=== PATIENT | male | born 1985 | race Asian ===

== ENCOUNTER 2018-11-02 13:43 | Emergency (ER) | payer OTHER, SELFPAY ==
[2018-11-02 14:05] VITALS: BP 112/63; PULSE 77; RESP 18; TEMP 36.9; O2SAT 99; BMI 22.6
--- NOTE | 2018-11-02 14:10 | DI.RAD.S_ITS ---
PROCEDURE: XR FOOT LT MIN 3V INDICATIONS: Machine rolled over distal foot, unable to wt bear. TECHNIQUE: 3 views of the foot were acquired. COMPARISON: None. FINDINGS: Bones: There is a non-displaced fracture at the base of the fourth proximal phalanx. No suspicious bony lesions. Soft tissues: No tibiotalar joint effusion. Achilles tendon appears normal. Dorsal soft tissue swelling. IMPRESSION: Nondisplaced fracture at the base of the fourth proximal phalanx. Dictated by: Brianna Heath M.D. on 11/02/2018 at 14:36 Approved by: Brianna Heath M.D. on 11/02/2018 at 14:37
[2018-11-02] MEDS: TET,DIPH,PERTUSS(ACELL),VAC/PF 0.5 ML SYRINGE IM (16:17)
[2018-11-02] MEDS: cephALEXin 250 MG CAPSULE 500 MG PO (16:18)
[2018-11-02 16:32] VITALS: BP 122/71; PULSE 82; RESP 15; O2SAT 100
[2018-11-02] MEDS: HYDROCODONE/ACET 5/325 PREPACK 1 BOTTLE MISC (16:38)
--- NOTE | 2018-11-02 19:22 | ED_ITS ---
HPI - Extremity Injury (Lower) General Chief Complaint: Extremity Injury, Lower Stated Complaint: CRUSH INJURY TO LEFT FOOT Time Seen by Provider: 11/02/18 14:53 Source: patient and family Mode of arrival: ambulatory Limitations: no limitations History of Present Illness HPI Narrative: 33-year-old, fully immunized nonsmoker presents with a work related left foot injury when heavy work machine rolled over his left foot. He now has painful ambulation and some blood coming from the his pinky toe. His tetanus will need to be updated today. He denies other injury and is otherwise well and free of complaint MD complaint: foot injury Onset (ago): minute(s) Injury: Left: foot Place: work Severity: moderate Relieving factors: nothing Exacerbating factors: weight bearing and movement Related Data Previous Rx's Medication Instructions Recorded cephalexin [Keflex] 500 mg PO QID 7 Days #28 cap 11/02/18 Allergies Allergy/AdvReac Type Severity Reaction Status Date / Time No Known Drug Allergies Allergy Verified 11/02/18 14:09 Review of Systems Review of Systems All systems reviewed & are unremarkable except as noted in HPI and below Constitutional Denies chills, Denies fever(s), Denies lethargy and Denies weakness Eyes Denies change in vision, Denies eye discharge, Denies irritation and Denies loss of vision ENT Ears, Nose, Mouth, and Throat: Denies change in voice, Denies neck pain and Denies sore throat Cardiovascular Denies chest pain, Denies irregular heart rhythm, Denies lightheadedness, Denies palpitations, Denies dyspnea, Denies dyspnea on exertion and Denies orthopnea Respiratory Denies cough, Denies dyspnea, Denies dyspnea on exertion and Denies wheezing Gastrointestinal Gastrointestinal: Denies abdominal pain, Denies change in bowel habits, Denies diarrhea, Denies nausea and Denies vomiting Genitourinary Denies hematuria, Denies flank pain, Denies urinary incontinence and Denies urinary urgency Musculoskeletal Reports joint swelling, Reports limited range of motion and Denies neck pain Integumentary/Breasts Denies pruritus, Denies erythema, Denies rash and Denies wounds Neurologic Denies confusion, Denies loss of vision and Denies weakness Psychiatric Denies anxiety, Denies confusion, Denies depression, Denies homicidal ideation and Denies suicidal ideation Endocrine Denies palpitations Hematologic/Lymphatic Denies easy bruising Allergic/Immunologic Denies wheezing PFSH Social History Smoking Status: Current every day smoker Exam Narrative Exam Narrative: GEN: AOx3 and in mild distress EYES: Pupils are equal, round, and reactive to light and accommodation. Extraoccular muscles are intact bilaterally. There is no subconjunctival hemorrhage or exudate. CHEST: Lungs are clear to auscultation bilaterally and free of wheezes, rales, or rhonchi. Heart rate is regular rhythm, there are no murmurs, clicks, rubs, or gallops. There is no chest wall tenderness. ABD: Abdomen is soft and nontender. There is no guarding or rebound. Bowel sounds are normal in all 4 quadrants. There is no mass or organomegaly. EXT: Pain and swelling on the dorsal lateral aspect of left foot with a small superficial abrasion. Primary point of tenderness is at the base of the 4th and toes. There is a laceration, 1 cm in the you webspace between the 4th and 5th toe extending towards the 5th toe, not into the base of the 4th toe where the fracture is noted on the x-ray. SKIN: Warm, pink, and dry. No erythema or rash Initial Vital Signs Initial Vital Signs: Vital Signs Temperature 98.4 F 11/02/18 14:05 Pulse Rate 77 11/02/18 14:05 Respiratory Rate 18 11/02/18 14:05 Blood Pressure 112/63 11/02/18 14:05 Pulse Oximetry 99 11/02/18 14:05 Procedures Laceration Repair Laceration 1: Site: lower extremity Side (If applicable): left (1.5) Description: irregular and clean Depth: simple, single layer Local Anesthetic: lidocaine 1% and with bicarb Amount of anesthesia used (mL): 6 Skin layer closed with: nylon Size (cm): 5-0 Number of sutures: 4 Technique: simple, interrupted Course Orders Ordered: ED Orders 11/02/18 14:10 XR foot LT min 3V Stat Discontinued Medications Hydrocodone Bitart/Acetaminophen (Vicodin Prepack) 1 bottle MISC SEEINSTR ONE Stop: 11/02/18 16:24 Last Admin: 11/02/18 16:38 Dose: 1 bottle Cephalexin HCl (Keflex) 500 mg PO NOW ONE Stop: 11/02/18 16:00 Last Admin: 12/23/18 16:18 Dose: 500 mg Diphtheria/Tetanus/Acell Pertussis (Adacel) 0.5 ml IM .ONCE ONE Stop: 11/02/18 16:17 Last Admin: 11/02/18 16:17 Dose: 0.5 ml Vital Signs - 8 hr 11/02/18 14:05 11/02/18 16:32 Temperature 98.4 F Pulse Rate 77 82 Respiratory Rate 18 15 Blood Pressure 112/63 Blood Pressure [Left Arm] 122/71 Pulse Oximetry 99 100 MDM - Extremity Injury (Lower) Imaging Data Foot Xray: Radiologist's impression: [address] [address] XRay Report Signed Patient: EDITH VALLEJO MR#: [id number] : 1985 Acct:[id number] Age/Sex: 33 / M Date of Service: 11/02/18 Loc: ED Accession Number: [id number] Procedure: XR foot LT min 3V Ordering Provider: Jag Negron D.O. PROCEDURE: XR FOOT LT MIN 3V INDICATIONS: Machine rolled over distal foot, unable to wt bear. TECHNIQUE: 3 views of the foot were acquired. COMPARISON: None. FINDINGS: Bones: There is a non-displaced fracture at the base of the fourth proximal phalanx. No suspicious bony lesions. Soft tissues: No tibiotalar joint effusion. Achilles tendon appears normal. Dorsal soft tissue swelling. IMPRESSION: Nondisplaced fracture at the base of the fourth proximal phalanx. Dictated by: Brianna Heath M.D. on 11/02/2018 at 14:36 Approved by: Brianna Heath M.D. on 11/02/2018 at 14:37 [facility] Narrative Medical decision making narrative: Patient with crush injury resulting in 1 small nondisplaced fracture and a laceration. Foot was soaked and scrubbed extensively. Tetanus is updated and antibiotics initiated. Follow-up suggested workplace is [facility] Discharge Plan Departure Patient Disposition: Home Clinical Impression: Foot fracture, left, Laceration of foot, left, Contusion of foot, left Discharge Date/Time: 11/02/18 16:39 Interventions: ED Discharge Assessment Last Done: 11/02/18 16:39 Instructions: DI for Laceration Repair, DI for Foot Fracture Activity Restrictions/Additional Instructions: Please keep the wound clean and dry to the best of your ability. Please monitor for signs of infection such as redness to the skin or increasing pain. Have the sutures removed by your doctor in about 7 days. If you are unable to get into your doctor, we would be happy to remove the sutures in that same timeframe. Prescriptions: New cephalexin [Keflex] 500 mg capsule 500 mg PO QID 7 Days Qty: 28 RF: 0
== END 2018-11-02 16:39 | disposition home or self-care (01) ==
PROVIDERS: Emergency Provider Emergency Medicine
DX: S92.902A Unspecified fracture of left foot, initial encounter for closed fracture (principal); S92.312A Displaced fracture of first metatarsal bone, left foot, initial encounter for closed fracture; W23.0XXA Caught, crushed, jammed, or pinched between moving objects, initial encounter; Y99.0 Civilian activity done for income or pay
CPT/HCPCS: 12001; 73630; 90471; 99282; 99283; 90715

== ENCOUNTER 2018-11-09 09:39 | Emergency (ER) | payer OTHER, SELFPAY ==
[2018-11-09 09:50] VITALS: BP 123/78; PULSE 67; RESP 16; TEMP 36.9; O2SAT 100; BMI 21.1
--- NOTE | 2018-11-09 09:59 | ED.WOUNDLAC ---
HPI - Wound/Laceration General Chief Complaint: Wound/Laceration Stated Complaint: STITCHES REMOVAL Time Seen by Provider: 11/09/18 09:50 Source: patient Mode of arrival: ambulatory Limitations: no limitations History of Present Illness HPI narrative: 33-year-old male here for removal of stitches to his left foot. Stitches were placed approximately 7-10 days ago secondary to a laceration. Patient states things have been going well since the stitch placement. Related Data Allergies Allergy/AdvReac Type Severity Reaction Status Date / Time No Known Drug Allergies Allergy Verified 11/09/18 09:50 Review of Systems Constitutional Denies fever(s) Integumentary/Breasts Comments: Stitches removal to left foot Neurologic Comments: No numbness or tingling left foot [facility] Medical History Healthy adult (Acute) Social History Smoking Status: Current every day smoker Exam Initial Vital Signs Initial Vital Signs: Vital Signs Temperature 98.5 F 11/09/18 09:50 Pulse Rate 67 11/09/18 09:50 Respiratory Rate 16 11/09/18 09:50 Blood Pressure 123/78 11/09/18 09:50 Pulse Oximetry 100 11/09/18 09:50 Const General: cooperative, healthy appearing, comfortable, well developed, well groomed and No acute distress Resp Effort & Inspection: normal respiratory effort Skin Other: Wound located in between the 4th and 5th toe on the left foot looks well. Stitches intact. Neuro Sensory Exam: no sensory deficits noted Extrem Other: Very minor swelling to the lateral aspect distally of the left foot Course Vital Signs - 8 hr 11/09/18 09:50 Temperature 98.5 F Pulse Rate 67 Respiratory Rate 16 Blood Pressure 123/78 Pulse Oximetry 100 MDM - Wound/Laceration MDM Narrative Medical decision making narrative: 4 stitches were removed from the left foot in between the 4th and 5th digits. The wound looks well. No dehiscence. No surrounding erythema. No signs of infection. Patient was given care instructions. He was given return precautions. He expressed understanding and agreement plan. Discharge Plan Departure Patient Disposition: Home Clinical Impression: Laceration Instructions: Skin Wound Activity Restrictions/Additional Instructions: 4 stitches were removed today. The wound looks well. Recommend that you may contact with a primary care doctor in the local area. Return to the emergency department for any new or worsening symptoms
== END 2018-11-09 10:05 | disposition home or self-care (01) ==
PROVIDERS: Emergency Provider Emergency Medicine
DX: Z48.02 Encounter for removal of sutures (principal)
CPT/HCPCS: 99281; 99283

== ENCOUNTER → 2024-04-09 08:29 | Outpatient (CLI) | payer OTHER, SELFPAY ==
[2024-04-09 08:56] LABS: Add Manual Diff / Slide Review NO; Basophils Absolute Auto 100 /uL (0-100); Basophils Percent Auto 1.1 % (0-2); Eosinophils Absolute Auto 1500 /uL (0-450); Eosinophils Percent Auto 19.1 % (2-4); Hematocrit 42.9 % (41-53); Hemoglobin 14.3 g/dL (13.5-17.5); Lymphocytes Absolute Auto 1900 /uL (1100-4500); Lymphocytes Percent Auto 23.9 % (25-40); Mean Corpuscular HGB Conc 33.4 % (30-36); Mean Corpuscular Hemoglobin 29.9 PG (26-34); Mean Corpuscular Volume 89.5 fL (80-100); Monocytes Absolute Auto 500 /uL (0-900); Monocytes Percent Auto 5.8 % (3-14); Neutrophils Absolute Auto 3900 /uL (1500-7000); Neutrophils Percent Auto 50.1 % (50-75); Platelet Count 254 X10^3/uL (150-400); Red Blood Cell Count 4.79 X10^6/uL (4.5-5.9); Red Cell Distribution Width 12.6 % (11.6-14.8); White Blood Cell Count 7.8 X10^3/uL (4.5-11.0)
[2024-04-09 09:26] LABS: Alanine Aminotransferase 28 IU/L (<50); Albumin 4.4 g/dL (3.5-5.0); Albumin Globulin Ratio 2.1 (1.0-2.8); Alkaline Phosphatase 58 U/L (38-126); Aspartate Aminotransferase 26 IU/L (17-59); BUN Creatinine Ratio 14.8 (6-22); Bilirubin Total 0.4 mg/dL (0.2-1.3); Blood Urea Nitrogen 12 mg/dL (9-20); Calcium 8.9 mg/dL (8.4-10.2); Carbon Dioxide 27 mmol/L (22-32); Chloride 109 mmol/L (98-107); Cholesterol 145 mg/dL (140-199); Estimated Glomerular Filt Rate > 60 mL/min (>60); Globulin 2.1 g/dL (1.7-4.1); Glucose 109 mg/dL (70-100); HDL Cholesterol 61 mg/dL (40-60); HEMOLYSIS < 15 (0-50); LDL Cholesterol Calculated 68 mg/dL (<100); Potassium 4.5 mmol/L (3.4-5.1); Sodium 141 mmol/L (137-145); Total Protein 6.5 g/dL (6.3-8.2); Triglycerides 82 mg/dL (35-150)
[2024-04-09 15:52] LABS: HIV 1 & 2 Ab/Ag 4th Gen Combo NEGATIVE (NEGATIVE); Hep C Virus Ab w/Reflex Quant NEGATIVE s/c (NEGATIVE)
== END ==
PROVIDERS: PCP Family Medicine; Referring Provider Family Medicine; Visit Provider Family Medicine
DX: R10.13 Epigastric pain (principal); L29.9 Pruritus, unspecified; F41.1 Generalized anxiety disorder; F17.200 Nicotine dependence, unspecified, uncomplicated
CPT/HCPCS: 36415; 80053; 80061; 85025; 86803; 87389